=== PATIENT | female | born 1975 | race Caucasian/White ===

== ENCOUNTER 2018-11-20 22:09 | Emergency (ER) | payer MEDICARE ==
[~2018-11-20] VITALS: Ht 162.6 cm; Wt 65.8 kg
[2018-11-20] MEDS ORDERED: PENVK250 PO (22:36)
[2018-11-20] MEDS ORDERED: IBUP800 PO (22:37)
[2018-11-20] MEDS ORDERED: Prozac40 MG PO (22:37)
== END 2018-11-20 23:20 | disposition home or self-care (01) ==
LOC: ER 22:09
DX: K03.81 Cracked tooth (principal); Z85.42 Personal history of malignant neoplasm of other parts of uterus; F17.200 Nicotine dependence, unspecified, uncomplicated; Z88.2 Allergy status to sulfonamides; Z88.1 Allergy status to other antibiotic agents; Z79.899 Other long term (current) drug therapy
CPT/HCPCS: 64400; 99282-25; A9270

== ENCOUNTER 2023-02-12 16:24 | Emergency (ER) | payer MEDICARE, OTHER ==
[~2023-02-12] VITALS: Ht 167.6 cm; Wt 65.8 kg
[~2023-02-12 16:24] MED LIST: IBUP800 PO; PENVK250 PO; Prozac40 MG PO
[2023-02-12 16:28] VITALS: BP 156/87
== END 2023-02-12 19:24 | disposition home or self-care (01) ==
LOC: ER 16:24
DX: H91.92 Unspecified hearing loss, left ear (principal); H73.892 Other specified disorders of tympanic membrane, left ear; M19.90 Unspecified osteoarthritis, unspecified site; Z88.2 Allergy status to sulfonamides; Z88.1 Allergy status to other antibiotic agents; Z79.899 Other long term (current) drug therapy
CPT/HCPCS: 70450; 99283-25